=== PATIENT | female | born 2000 | race Caucasian/White ===

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

== ENCOUNTER 2024-05-09 15:55 | Emergency (ER) | payer OTHER ==
[2024-05-09 16:57] LABS: HEMATOCRIT 38.6 % (37.0-47.0); HEMOGLOBIN 13.5 g/dL (11.5-16.5); MEAN CORPUSCULAR HEMOGLOBIN 32.8 pg (27.0-32.0); RED BLOOD CELL COUNT 4.12 M/uL (3.80-5.80); WHITE BLOOD CELL COUNT,WBC 7.1 K/uL (4.0-11.0)
[2024-05-09 17:15] LABS: ANION GAP 15.6 mmol/L (5.0-15.0); BLOOD UREA NITROGEN,BUN 12 mg/dL (8-26); BUN/CREATININE RATIO 11.9 (6-25); CALCIUM 8.9 mg/dL (8.5-10.1); CARBON DIOXIDE,CO2 23.2 mmol/L (21.0-32.0); CHLORIDE,CL 105 mmol/L (98-107); CREATININE 1.01 mg/dL (0.55-1.02); EST CRCL DRUG DOSING (CG) 82.48 mL/min; ESTIMATED GFR 81 mL/min (>60); GLUCOSE RANDOM 83 mg/dL (74-100); MAGNESIUM 1.9 mg/dL (1.8-2.4); PHOSPHORUS 4.6 mg/dL (2.5-4.9); POTASSIUM,K 3.8 mmol/L (3.5-5.1); SODIUM,NA 140 mmol/L (136-145)
[2024-05-09 17:34] LABS: TROPONIN I HIGH SENSITIVITY < 4.0 pg/ml (<=60.4)
== END 2024-05-09 18:05 | disposition home or self-care (01) ==
LOC: LB.ED 15:55 → MERGE 15:55 → LB.ED 18:05
DX: R55 Syncope and collapse (principal); R56.9 Unspecified convulsions; Z79.899 Other long term (current) drug therapy
CPT/HCPCS: 36415; 70450; 80048; 83735; 84100; 84484; 85027; 93005; 99284; 99285

== ENCOUNTER 2025-04-23 09:01 | Emergency (ER) | payer OTHER, MEDICAID ==
[2025-04-23 10:25] LABS: APPEARANCE,URINE CLEAR (CLEAR); BILIRUBIN,URINE NEGATIVE (NEGATIVE); COLOR,URINE YELLOW; GLUCOSE,URINE NEGATIVE (NEGATIVE); KETONES,URINE NEGATIVE (NEGATIVE); LEUKOCYTE ESTERASE,URINE SMALL (NEGATIVE); NITRITE,URINE NEGATIVE (NEGATIVE); OCCULT BLOOD,URINE MODERATE (NEGATIVE); PH,URINE 5.5 (5.0-8.0); PROTEIN,URINE NEGATIVE (NEGATIVE); UROBILINOGEN,URINE 0.2 E.U./dL (0.2-1.0)
[2025-04-23 10:41] LABS: WBC,URINE 20-30 /HPF
[2025-04-23 10:42] LABS: SQUAMOUS EPITHELIAL CELLS,UR OCCASIONAL /HPF
== END 2025-04-23 11:00 | disposition home or self-care (01) ==
LOC: LB.ED 09:01
DX: N39.0 Urinary tract infection, site not specified (principal)
CPT/HCPCS: 81001; 81025; 87086; 99284